=== PATIENT | male | born 1980 | race African-American/Black ===

== ENCOUNTER 2018-10-22 14:15 | Emergency (ER) | payer BC ==
[~2018-10-22] VITALS: Ht 182.9 cm; Wt 113.4 kg
[2018-10-22] MEDS ORDERED: LYRICA 50 MG50 MG PO (14:28)
[2018-10-22] MEDS ORDERED: CYMBALTA20 MG PO (14:29)
[2018-10-22] MEDS ORDERED: CELEBREX 200 M200 M1 PO (14:30)
[2018-10-22 15:28] LABS: ABSOLUTE BASOPHILS 0.1 thou/uL (0.0-0.2); ABSOLUTE EOSINOPHILS 0.1 thou/uL (0.0-0.7); ABSOLUTE LYMPHOCYTES 0.9 thou/uL (0.8-5.3); ABSOLUTE MONOCYTES 0.7 thou/uL (0.0-1.2); ABSOLUTE NEUTROPHILS 3.2 thou/uL (1.6-8.1); BASOPHILS 1.1 %; EOSINOPHILS 1.1 %; HEMATOCRIT 32.5 % (42.0-52.0); HEMOGLOBIN 10.1 gm/dL (14.0-18.0); LYMPHOCYTES 18.5 %; MCH 20.6 pg (26.0-34.0); MCHC 31.3 g/dL (28.0-37.0); MCV 65.7 fL (80.0-100.0); MONOCYTES 13.4 %; MPV 7.7 fl. (7.2-11.1); NUCLEATED RBCS 0 /100WBC; PLATELET COUNT* 411 thou/uL (150-400); POLYS 65.9 %; RBC 4.94 mil/uL (4.50-6.00); WBC 4.9 thou/uL (4.0-11.0)
[2018-10-22 15:35] LABS: CALCIUM 9.4 mg/dL (8.5-10.1); CREATININE 1.1 mg/dL (0.6-1.3)
[2018-10-22 15:47] LABS: ALBUMIN 3.3 g/dL (3.4-5.0); TOTAL BILIRUBIN 0.4 mg/dL (<0.1-1.0)
[2018-10-22 16:22] LABS: PLATELET ESTIMATE ADEQUATE
[2018-10-22 16:23] LABS: OVALOCYTES 1+; TARGET CELLS Occasional
[2018-10-22 16:24] LABS: ANISOCYTOSIS 1+
[2018-10-22 16:26] LABS: HYPOCHROMASIA 3+; MICROCYTES 2+
[2018-10-22] MEDS ORDERED: DOXYCYCLINE 10100 MG PO (16:32)
[2018-10-22 16:40] LABS: ESR (SEDRATE) 92 mm/hr (0-15)
[2018-10-22 18:46] VITALS: BP 132/75
== END 2018-10-22 18:47 | disposition left against medical advice (07) ==
LOC: M.ERS 14:15
PROVIDERS: Emergency Medicine Emergency Medical Services
DX: M86.172 Other acute osteomyelitis, left ankle and foot (principal); F17.200 Nicotine dependence, unspecified, uncomplicated; Z88.8 Allergy status to other drugs, medicaments and biological substances